=== PATIENT | male | born 1965 | race Caucasian/White ===

== ENCOUNTER → 2016-06-06 | Outpatient (CLI) | payer OTHER ==
[~2016-06-06] MED LIST: AMLO10TA88 PO; ATOR-24 PO; AZITTAB PO; CHOL100027 PO; CITA20TA4 PO; FEBU80TA PO; METH4PAK PO; UMEC1INH INH; [UNRECOGNIZED DRUG - CODE] PO
--- NOTE | 2016-06-07 06:37 | PAP/PSG TECHNICIAN REPORT ---
[facility] Utility Specialist Polysomnogram Report Study name: None Report date: 06/07/2016 Study date: 06/06/2016 Referring Physician: Ian VIERA M.D. Name: GUCCI CERDA Interpreting Physician: Jannette Viera M.D. Date of : 1965 Utility Specialist: Rai Pierce RPSGT. Sex: Male Age: 51 StudyType: PSG Weight: 244 lbs Height: 51 years, Height 5' 11" BMI: 34.03 Medications: CELEXA 20 MG, LIPITOR 40 MG, DESTINY 5-20 MG, OXYEGN 2L/MIN, ULORIC 80 MG, SULLNDAC 200 MG, CIALIS 20 MG, VITAMIN D 1000 UNITS, NAPROXEN 500 MG, MECLIZINE HCL 25 MG Patient History PATIENT HAS HISTORY OF DAYTIME FATIGUE AND SLEEPINESS. ALSO HISTORY OF OBESITY, SEVER SNORING, INSOMNIA AND NOCTURNAL HYPOXEMIA. HE HAD SLEEP STUDY DONE IN THE PAST AT [facility] BUT WAS NOT POSITIVE FOR MAL. ESS = 4 RM 5 Parameters Monitored NPSG: E1-M2, E2-M1, Fp1-M2, Fp2-M1, F3-M2, F4-M2, F4-M1, C3-M2, C4-M2, C4-M1, O1-M2, O2-M2, O2-M1, T3-M2, T4-M1, P3-M2, P4-M1, CHIN1, CHIN2, HR, EKG, Legs, PFLOW, SNOR, FLOW, CFLOW, Tidal Volume, THOR, ABDO, SpO2, PLTH, CPRESS, ETCO2 Wave, ETCO2, pH Sleep Architecture Sleep Stages Time at Lights Off 8:47:30 PM STAGES Time (min.) TST (%) Time at Lights On 5:25:30 AM Wake 93.5 -- Total Recording Time (TRT) 518.50 min. N1 73.5 17 Total Sleep Period (TSP) 497.5 min. N2 250.5 59 Total Sleep Time (TST) 424.5min. N3 46.5 11 Awake Time 93.5 min. REM 54.0 13 Wake after Sleep Onset 73.0 min. Sleep Efficiency (SE) 82 % Sleep Onset Latency (CORI) 20.5 min. Number of Stage 1 Shifts None Awakenings 37 Stage Changes 125 Number of REM periods 3 REM 54.0 13 REM Latency 309.0 min. NREM 370.5 87 Body Position Analysis Supine Right Left Side Prone Vertical Total Sleep Time (min.) 413.3 84.5 0.0 84.50 0.0 0.0 Total Sleep Time (%) 80% 20% 0% 20 0% N/A% Total Sleep Time REM (min.) 54.0 0.0 0.0 None 0.0 0.0 Total Sleep Time NREM (min.) 286.0 84.5 0.0 None 0.0 0.0 Intermittent Wake (min.) 73.3 20.2 0.0 None 0.0 0.0 Total Sleep Period (%) 79% None None None None None Arousals Myoclonus (PLM) * Events Count Index Events Count Index Spontaneous 45 6 Events Awake (PLMW) 12 7.7 Respiratory 4 0.7 Events Asleep w/ Arousal (PLMA) 9 1.3 PLM 9 1 Events Asleep w/o Arousal (PLMS) 125 17.7 Snoring 3 0 Total Asleep 134 18.9 Total 61 9 Total 146 17 Respiratory Analysis * CA OA MA CH H RERA Total Count 0 0 0 0 57 2 57 Index 0.0 0.0 0.0 0 8.1 0 8.3 Mean Duration 0.0 0.0 0.0 0.00 18.3 14.8 18.2 Longest Duration 0.0 0.0 0.0 0.00 0.0 15.1 44.7 Respiratory Event Summary Total Supine ~Supine Right Left Prone REM NREM Apneas Count 0 0 0 0 N/A N/A 0 0 Index 0.0 0 0 0.0 N/A N/A 0 0 Hypopneas (4% Desat) Count 57 56 1 1 N/A N/A 8 49 Index 8.1 9.9 1 0.7 N/A N/A 8.9 7.9 Apneas & All Hypopneas Count 57 56 1 1 N/A N/A 8 49 Index 8.1 10 1 1 N/A N/A 8.9 7.9 Respiratory Events (After School Counselor+All Hyp+RERA) Count 57 58 1 1 N/A N/A 8 49 Index 8.3 10 1 0.7 N/A N/A 8.9 8.3 Respiratory Related Arousal Count 4 58 0 0 N/A N/A 0 5 Index 0.7 1 0 0 N/A N/A 0 1 Snoring Analysis Supine Right Left Prone REM NREM Total Snore duration 35.3 min Snores count 1,400 80 N/A N/A 77 1,403 1,480 Snore mean duration 1.4 Sec Snores index 247 57 N/A N/A 85.6 227.2 209.2 TST with snoring (%) 8.3% SpO2 Analysis Total REM NREM Awake <50% 0.0 min. 0.0 min. 0.0 min. 0.0 min. 51 - 60% 0.0 min. 0.0 min. 0.0 min. 0.0 min. 61 - 70% 0.0 min. 0.0 min. 0.0 min. 0.0 min. 71 - 80% 0.0 min. 0.0 min. 0.0 min. 0.0 min. 81 - 90% 122.3 min. 21.1 min. 89.0 min. 12.1 min. 91 - 100% 394.7 min. 32.9 min. 280.6 min. 81.2 min. Average 92 91 91 92 Minimum SpO2 80 87 87 80 Desaturation Event Index 7.1 10.0 8.3 0.6 # Desat. Events below 89% 10 5 5 N/A Time(%) with Saturation below 89% 1.3 0.6 0.6 0.1 Time(min.) with Saturation below 89% 6.5 3.0 3.0 0.6 Heart Rate Analysis End Tidal CO2 Analysis Min (bpm) Max (bpm) Average (bpm) TSP (mins) % of TSP Awake 58 104 67 Above 55 mmHg 0.0 0.0 NREM 58 84 66 50-55 mmHg 0.0 0.0 REM 59 79 70 45-50 mmHg 34.9 8.2 Overall 58 84 67 40-45 mmHg 218.2 51.4 35-40 mmHg 82.8 19.5 30-35 mmHg 53.8 12.7 Average ETCO2 0.2 Supplemental O2 Values Minimum O2 level: None Value Start Time End Time Utility Specialist Comments Mr. Cerda slept in the right and supine positions. No cardiac arrhythmia noted. Leg movements noted. No bruxism noted. Snoring was noted and scored as a 3 on a scale of 1 through 5. (0=no snoring, 5=snoring loud enough to be heard through a closed door or down the [address]) Mr. Cerda awoke to use the restroom 0 times during the night. Mr. Cerda state I slept as well as I do when I am in my own bed. The final report will be interpreted and signed by a sleep physician. The completed physician report will then be placed in the patient medical record. Therapy (cm H2O) 0 TIB (min.) 518.0 TST (min.) 424.5 Sleep Onset (min.) 20.5 REM Onset From Sleep (min.) 309.0 Sleep Efficiency % 82 Wakefulness (%) 18 Wakefulness (min.) 93.5 NREM 1 (%) 17 NREM 1 (min.) 73.5 NREM 2 (%) 59 NREM 2 (min.) 250.5 NREM 3 (%) 11 NREM 3 (min.) 46.5 REM (%) 13 REM (min.) 54.0 # Arousals 61 Arousal Index 9 # Snore 1,480 Snore Index 209.2 AHI 8.1 AHI Supine 10 AHI Non-Supine 1 NREM AHI 7.9 REM AHI 8.9 RDI 8.3 # Obstructive Apnea 0 # Central Apnea 0 # Mixed Apnea 0 # Hypopneas 57 RERAs 2 Total Respiratory Events 59 Time Below SpO2 89% (min.) 6.0 Mean NREM SpO2 (%) 91 Mean REM SpO2 (%) 91 Mean Sleep SpO2 (%) 91 Min NREM SpO2 (%) 87 Min REM SpO2 (%) 87 Position Supine (min.) 413.3 Position Non-supine (min.) 84.5 LM Index Sleep 18.9 LM Index NREM 18.1 LM Index REM 24.4 Mean Heart Rate (bpm) 67 Min Heart Rate (bpm) 58
--- NOTE | 2016-06-17 02:51 | POLYSOMNOGRAPH REPORT ---
REFERRING PERSON: Dr. Ayaan Viera. YARDER OPERATOR: Rai Pierce. Mr. Stratton is a 51-year-old male who complains of excessive daytime sleepiness and fatigue. He has a history of obesity, severe snoring, insomnia and nocturnal hypoxemia. His [place] Sleepiness Scale score on the evening of this study is 4, BMI is 34.03. Following the technical and digital specifications of the [employer] [place] [employer] (AASM), a standard diagnostic polysomnogram was performed, monitoring EEG, EOG, EMG (chin and leg deviations), oxygen saturation, body position, digital video, respiratory effort and airflow. The sleep Stage and Event scoring was based on the AASM Manual for the Scoring of Sleep and Associated Events, 2007 edition. Apneas are defined as a drop in the peak thermal sensor excursion by >90% of baseline for at least 10 seconds. Hypopneas were scored using the 4% oxygen desaturation rule (4A-Medicare) and a decrease in the nasal pressure excursions by >30% of baseline for at least 10 seconds. Respiratory effort-related arousal (RERA) is defined as a sequence of breaths lasting at least 10 seconds characterized by increasing respiratory effort or flattening of the nasal pressure waveform leading to an arousal from sleep when the sequence of breaths does not meet criteria for an apnea or hypopnea. Apnea Hypopnea index (AHI) is defined as the number of apneas and hypopneas occurring in an hour of sleep. Respiratory disturbance index (RDI) is defined as the number of apneas, hypopneas, and RERAs occurring in an hour of sleep. Mr. Stratton's total sleep period time was 497.5 minutes. Total sleep time was 424.5 minutes. Sleep efficiency was 82%. Latency to sleep onset was 20.5 minutes with wake after sleep onset of 73 minutes. Total non-REM sleep time was 370.5 minutes. He spent 17% of that time in N1 sleep, 59% in N2 sleep, and 11% in N3 sleep. REM latency was 309 minutes. Total REM sleep time was 54 minutes or 13% of total sleep time. There were 61 cortical arousals from sleep. Three of these arousals were due to snoring, 9 due to periodic limb movements of sleep, 4 were due to respiratory events, and 45 were spontaneous. There were 134 periodic limb movements noted on this test. Limb movement index was 18.9. Limb movement with arousal index was 1.3. There were no central obstructive or mixed apneas on this test. There were 57 hypopnea and 2 RERA. Apnea-hypopnea index was 8.1, RDI was 8.3. This is consistent with mild sleep apnea. There were 1480 snoring events recorded. Total sleep time with snoring was 8.3%. Mean saturation was 92% with desaturations to 80%. Saturations were less than 89% for 6.5 minutes of sleep time. This is significant nocturnal hypoxemia. There was no cardiac ectopy noted on this study. Heart rates ranged from a low of 58 beats per minute to a high of 84 beats per minute during sleep. End-tidal CO2 was recorded on this test. End-tidal CO2s were between 45 and 50 mmHg for 8.2% of total sleep period time, between 40 and 45 mmHg for 51.4%, between 35 and 40 mmHg for 19.5%, and between 30 and 35 mmHg for 12.7% of total sleep period time. IMPRESSION AND PLAN: A 51-year-old male with evidence of mild sleep apnea and mild nocturnal hypoxemia on this sleep study. 1. This patient would likely benefit from positive airway pressure therapy. It would eliminate his snoring, hypoxemia, as well as his apnea. He could be returned to the sleep lab for a full night titration, and then based on those results, be started on equipment at home. A download from his machine should be then reviewed in 1 month, both to check compliance as well as AHI, and further pressure adjustments can occur at that time. 2. Alternatively, this patient could be started on an auto-titrating CPAP with pressures of 5-15 cm. After a month, optimal pressure can be determined and a download reviewed to ensure compliance. A nocturnal oximetry can then be performed on optimal pressure to ensure hypoxemia resolves with CPAP alone. 3. Should this patient be unwilling or unable to tolerate CPAP therapy, he could be referred to ear, nose and throat or oral surgery/dental medicine (if appropriate) to discuss alternative treatments for sleep disordered breathing.
== END | disposition home or self-care (01) ==
LOC: C.NEUR 20:00
PROVIDERS: ATTEND Family Medicine
DX: R06.02 Shortness of breath (principal); G47.34 Idiopathic sleep related nonobstructive alveolar hypoventilation

== ENCOUNTER 2016-10-28 13:42 | Emergency (ER) | payer OTHER ==
[~2016-10-28] VITALS: Ht 180.3 cm; Wt 112.8 kg
[~2016-10-28 13:42] MED LIST changes: -ATOR-24 PO; -AZITTAB PO; -CHOL100027 PO; -CITA20TA4 PO; -FEBU80TA PO; -METH4PAK PO; -UMEC1INH INH; -[UNRECOGNIZED DRUG - CODE] PO
[2016-10-28 13:52] VITALS: Ht 180.3 cm; Wt 112.8 kg
[2016-10-28] MEDS ORDERED: SODIUM CHLORIDE 0.9% 1000ML 1,000 ML IV ONE (14:15)
[2016-10-28 14:29] LABS: URINE APPEARANCE CLEAR (CLEAR); URINE BILIRUBIN NEG (NEG); URINE COLOR YELLOW; URINE NITRITE NEG (NEG); URINE PH 5.5 (4.5-7.5); URINE SPECIFIC GRAVITY 1.021 (1.000-1.030); UROBILINOGEN NEG (NEG); ZZUR CULT IF INDIC CLEAN CATCH NO
[2016-10-28 14:38] LABS: MANUAL MICROSCOPIC REQUIRED? NO; REVIEW REQ? NO
[2016-10-28 14:47] LABS: BASO % 0.2 %; BASO ABS # 0.01 K/uL (0-0.2); COMPLETE YES; EOS % 4.2 %; HEMATOCRIT 39.1 % (42-52); IG% 0.5 %; LYMPH % 25.1 %; LYMPH ABS # 1.44 K/uL (1.2-3.4); MEAN CELL VOLUME 87.9 fL (80-100); MEAN CORPUSCULAR HEMOGLOBIN 31.7 pg (25-34); MEAN CORPUSCULAR HGB CONC 36.1 g/dl (32-36); MEAN PLATELET VOLUME 10.7 fL (7.4-10.4); MONO % 10.3 %; NEUT % 59.7 %; PLATELET COUNT 188 K/uL (130-400); RED BLOOD COUNT 4.45 M/uL (4.7-6.1); WHITE BLOOD COUNT 5.73 K/uL (4.8-10.8)
--- NOTE | 2016-10-28 14:50 | DIAGNOSTIC IMAGING REPORT ---
CHEST 2 VIEWS ROUTINE CLINICAL HISTORY: Cough. SOB COMPARISON STUDY: Chest radiograph May 04, 2016. FINDINGS: Thoracic spine hardware is noted. There is no pneumothorax or pleural effusion. Linear left basilar opacity suggests atelectasis or scarring. There is evidence for a previous right thoracotomy. The appearance of the chest is unchanged. There is no evidence of pulmonary edema. IMPRESSION: No acute cardiopulmonary findings. No change in appearance of the chest. Electronically signed by: David Wolfe M.D. 10/28/2016 2:49 PM Dictated Date/Time: 10/28/2016 2:47 PM
[2016-10-28 14:55] LABS: POINT OF CARE TROPONIN I < 0.030 ng/ml (0-0.045)
[2016-10-28 15:06] LABS: BUN/CREATININE RATIO 11.4 (10-20); CALCIUM 8.8 mg/dl (8.5-10.1); CREATININE 1.3 mg/dl (0.60-1.40); MAGNESIUM 2.1 mg/dl (1.8-2.4); POTASSIUM 3.6 mmol/L (3.5-5.1)
[2016-10-28 15:11] LABS: CKMB/CK RATIO 1.1 (0-3.0)
--- NOTE | 2016-10-28 15:34 | DIAGNOSTIC IMAGING REPORT ---
CHEST CTA for PULMONARY ARTERIES CT DOSE: 685.80 mGy.cm HISTORY: Chest pain dyspnea TECHNIQUE: Multiaxial CT images of the chest were performed following the intravenous administration of contrast to evaluate the pulmonary arteries. Maximal intensity projection images were also obtained. COMPARISON STUDY: 03/14/2013 FINDINGS: Pulmonary vasculature enhances appropriately. Lungs are considered clear. Chronic pleural scarring right base laterally. Stable postoperative changes involving the thoracolumbar spine. IMPRESSION: 1. Study is negative for pulmonary most. 2. Lungs are considered clear. Electronically signed by: Pranav Vallejo M.D. 10/28/2016 3:33 PM Dictated Date/Time: 10/28/2016 3:31 PM
[2016-10-28] MEDS ORDERED: [UNRECOGNIZED DRUG - CODE] PO (15:53)
[2016-10-28] MEDS ORDERED: ATOR-24 PO (15:53)
[2016-10-28] MEDS ORDERED: UMEC1INH INH (15:53)
[2016-10-28] MEDS ORDERED: AZITTAB PO (15:55)
[2016-10-28] MEDS ORDERED: METH4PAK PO (15:55)
[2016-10-28 16:10] VITALS: BP 144/100; PULSE 70; TEMP 36.7; O2SAT 98
[2016-10-28] MEDS ORDERED: FEBU80TA PO (17:33)
[2016-10-28] MEDS ORDERED: CHOL100027 PO (17:33)
[2016-10-28] MEDS ORDERED: CITA20TA4 PO (17:33)
--- NOTE | 2016-10-28 19:26 | EMERGENCY ROOM VISIT NOTE ---
History First contact with patient: 13:52 Chief Complaint: SHORTNESS OF BREATH Stated Complaint: HEAVY CHEST - POSSIBLE PNEUMONIA Nursing Triage Summary: Patient c/o productive cough since Friday with some pain in his chest when coughing. History of Present Illness The patient is a 51 year old male who presents to the Emergency Room with complaints of worsening cough over the past one to 2 days. The patient does have some burning chest pain with the coughing. He does not have pain into his arms or neck. The patient believes he may have pneumonia, as he has had similar symptoms in the past. The patient has not had fever at home. No recent travel history or history of coagulopathy. The patient has not taken anything [id number] for his symptoms. He rates his discomfort a 5/10. Review of Systems More than 10 systems were reviewed and otherwise negative with the exception of history of present illness. Past Medical/Surgical History Medical Problems: (1) Hypertension (2) Pneumonia Surgical Problems: (1) History of back surgery Family History Cancer Heart disease Social History Smoking Status: Never Smoker Alcohol Use: none Drug Use: none Housing Status: lives with significant other Occupation Status: unemployed Current/Historical Medications Scheduled Amlodipine Besylate-Olmesartan (Amlodipine/Olmesartan Med 5-20 mg), 1 TAB PO DAILY Atorvastatin (Lipitor), 40 MG PO DAILY Azithromycin (Zithromax Z-Kvng), 0 PO UD Cholecalciferol (Vitamin D 1000 Unit), 2,000 INTER.UNIT PO DAILY Citalopram Hydrobromide (Citalopram Hydrobromide), 20 MG PO DAILY Febuxostat (Uloric), 80 MG PO DAILY Methylprednisolone (Medrol Dosepak), 1 DOSE PO DAILY Umeclidinium [place] (Incruse Ellipta), 1 PUFF INH DAILY Allergies Coded Allergies: No Known Allergies (Unverified , 05/04/16) Physical Exam Vital Signs Date Time Temp Pulse Resp B/P (MAP) Pulse Ox O2 Delivery O2 Flow Rate FiO2 10/28/16 16:10 36.7 70 20 144/100 98 10/28/16 14:19 68 172/88 72 149/86 80 146/89 10/28/16 14:19 98 Room Air 10/28/16 13:52 36.7 76 20 166/99 96 Room Air Pain Rating (0-10): 0 Physical Exam VITALS: Vitals are noted on the nurse's note and reviewed by myself. Vital signs stable. GENERAL: Well-developed, well-nourished, white male, who is in no acute distress and resting comfortably. Patient is cooperative with the examination. HEAD: Normocephalic atraumatic. EARS: External ear normal. External auditory canals clear, tympanic membranes pearly sanchez without erythema or effusion bilaterally. EYES: Pupils equal round and reactive to light and accommodation. Conjunctivae without injection, sclerae without icterus. Extraocular movements intact. NOSE: Patent, turbinates without inflammation or discharge. MOUTH: Mucous membranes moist. Tonsils are not enlarged. Pharynx without erythema, blood, or exudate. Uvula midline. Airway patent. NECK: Supple without nuchal rigidity. No lymphadenopathy. No thyromegaly. Cervical spine is nontender. HEART: Regular rate and rhythm without murmurs gallops or rubs. LUNGS: Clear to auscultation bilaterally without wheezes, rales or rhonchi. No retractions or accessory muscle use. ABDOMEN: Positive normal bowel sounds x 4. Soft, nontender, without masses or organomegaly. No guarding or rebound tenderness. MUSCULOSKELETAL: No muscle atrophy, erythema, or edema noted. Negative Homans sign bilateral Medical Decision & Procedures ER Provider Diagnostic Interpretation: CHEST 2 VIEWS ROUTINE CLINICAL HISTORY: Cough. SOB COMPARISON STUDY: Chest radiograph May 04, 2016. FINDINGS: Thoracic spine hardware is noted. There is no pneumothorax or pleural effusion. Linear left basilar opacity suggests atelectasis or scarring. There is evidence for a previous right thoracotomy. The appearance of the chest is unchanged. There is no evidence of pulmonary edema. IMPRESSION: No acute cardiopulmonary findings. No change in appearance of the chest. CHEST CTA for PULMONARY ARTERIES CT DOSE: 685.80 mGy.cm HISTORY: Chest pain dyspnea TECHNIQUE: Multiaxial CT images of the chest were performed following the intravenous administration of contrast to evaluate the pulmonary arteries. Maximal intensity projection images were also obtained. COMPARISON STUDY: 03/14/2013 FINDINGS: Pulmonary vasculature enhances appropriately. Lungs are considered clear. Chronic pleural scarring right base laterally. Stable postoperative changes involving the thoracolumbar spine. IMPRESSION: 1. Study is negative for pulmonary most. 2. Lungs are considered clear. Laboratory Results 10/28/16 14:25 Red Blood Count 4.45, Mean Corpuscular Volume 87.9, Mean Corpuscular Hemoglobin 31.7, Mean Corpuscular Hemoglobin Concent 36.1, Mean Platelet Volume 10.7, Neutrophils (%) (Auto) 59.7, Lymphocytes (%) (Auto) 25.1, Monocytes (%) (Auto) 10.3, Eosinophils (%) (Auto) 4.2, Basophils (%) (Auto) 0.2, Neutrophils # (Auto ) 3.42, Lymphocytes # (Auto) 1.44, Monocytes # (Auto) 0.59, Eosinophils # (Auto ) 0.24, Basophils # (Auto) 0.01 10/28/16 14:25 Test 10/28/16 14:15 10/28/16 14:25 10/28/16 14:35 Urine Color YELLOW Urine Appearance CLEAR (CLEAR) Urine pH 5.5 (4.5-7.5) Urine Specific [place] 1.021 (1.000-1.030) Urine Protein NEG (NEG) Urine Glucose (UA) NEG (NEG) Urine Ketones NEG (NEG) Urine Occult Blood NEG (NEG) Urine Nitrite NEG (NEG) Urine Bilirubin NEG (NEG) Urine Urobilinogen NEG (NEG) Urine Leukocyte Esterase NEG (NEG) White Blood Count 5.73 K/uL (4.8-10.8) Red Blood Count 4.45 M/uL (4.7-6.1) Hemoglobin 14.1 g/dL (14.0-18.0) Hematocrit 39.1 % (42-52) Mean Corpuscular Volume 87.9 fL (80-100) Mean Corpuscular Hemoglobin 31.7 pg (25-34) Mean Corpuscular Hemoglobin Concent 36.1 g/dl (32-36) Platelet Count 188 K/uL (130-400) Mean Platelet Volume 10.7 fL (7.4-10.4) Neutrophils (%) (Auto) 59.7 % Lymphocytes (%) (Auto) 25.1 % Monocytes (%) (Auto) 10.3 % Eosinophils (%) (Auto) 4.2 % Basophils (%) (Auto) 0.2 % Neutrophils # (Auto) 3.42 K/uL (1.4-6.5) Lymphocytes # (Auto) 1.44 K/uL (1.2-3.4) Monocytes # (Auto) 0.59 K/uL (0.11-0.59) Eosinophils # (Auto) 0.24 K/uL (0-0.5) Basophils # (Auto) 0.01 K/uL (0-0.2) RDW Standard Deviation 41.0 fL (36.4-46.3) RDW Coefficient of Variation 12.8 % (11.5-14.5) Immature Granulocyte % (Auto) 0.5 % Immature Granulocyte # (Auto) 0.03 K/uL (0.00-0.02) Anion Gap 7.0 mmol/L (3-11) Est Creatinine Clear Calc Drug Dose 85.8 ml/min Estimated GFR () 73.2 Estimated GFR (Non- 63.2 BUN/Creatinine Ratio 11.4 (10-20) Calcium Level 8.8 mg/dl (8.5-10.1) Magnesium Level 2.1 mg/dl (1.8-2.4) Total Bilirubin 0.4 mg/dl (0.2-1) Aspartate Amino Transf (AST/SGOT) 31 U/L (15-37) Alanine Aminotransferase (ALT/SGPT) 53 U/L (12-78) Alkaline Phosphatase 95 U/L (45-117) Total Creatine Kinase 152 U/L (39-308) Creatine Kinase MB 1.7 ng/ml (0.5-3.6) Creatine Kinase MB Ratio 1.1 (0-3.0) Total Protein 7.8 gm/dl (6.4-8.2) Albumin 3.9 gm/dl (3.4-5.0) Globulin 3.9 gm/dl (2.5-4.0) Albumin/Globulin Ratio 1.0 (0.9-2) Lipase 116 U/L (73-393) Bedside D-Dimer > 450 ng/mlFEU (0-450) Bedside Troponin I < 0.030 ng/ml (0-0.045) Medications Administered Medications (Trade) Dose Ordered Sig/Stacie Route Start Time Stop Time Status Last Admin Dose Admin Sodium Chloride 1,000 ml @ 999 mls/hr Q1H1M ONCE IV 10/28/16 14:15 10/28/16 15:15 DC 10/28/16 14:15 999 MLS/HR ED Course Physical exam and history were performed. Nursing notes and EMR were reviewed. Patient appears to have a worsening cough over the past 2 days. The patient is also reporting burning of his chest. EKG was performed and was normal sinus rhythm without acute ST elevation. IV access was established and labs were obtained. The patient was hydrated as above. Chest x-ray was ordered. The patient's blood work does not show a distinctly elevated white blood cell count, gross anemia, bandemia, or significant electrolyte imbalance. His troponin 1 is negative. D-dimer was elevated, and a CT scan was negative. Chest x-ray was also negative. Overall the patient appears well for discharge home. His symptoms may be the result of a reactive airway process such as bronchitis or possibly allergies. I do not suspect cardiac etiology. The patient will be given a course of Zithromax and steroids. I recommended that he follow with his primary care physician in the next few days for recheck. He was otherwise invited back to the ER with any new, worsening, or concerning symptoms. The patient was pleased with plan of care and rated his discomfort a 0/10 at the time of departure. The chart was completed utilizing [employer] Speech Voice Recognition Software. Grammatical errors, random word insertions, pronoun errors, and incomplete sentences are an occasional consequence of this system due to software limitations, ambient noise, and hardware issues. Any formal questions or concerns about the content, text, or information contained within the body of this dictation should be directly addressed to the provider for clarification. . Medical Decision Differential diagnosis: Etiologies such as infections, reactive airway disease, pneumonia, pneumothorax , COPD, CHF, cardiac ischemia, pulmonary embolism, musculoskeletal, gastrointestinal, as well as others were entertained. Impression Primary Impression: Acute bronchitis Departure Information Dispostion Home / Self-Care Condition GOOD Prescriptions Methylprednisolone (MEDROL DOSEPAK) 4 Mg Kvng 1 DOSE PO DAILY, #1 PKT Prov: Pepito Guerra PA-C 10/28/16 Azithromycin (ZITHROMAX Z-KVNG) 250 Mg Tab 0 PO UD, #1 PKT 2 TABS DAY 1, THEN 1 TAB DAILY FOR 4 DAYS Prov: Pepito Guerra PA-C 10/28/16 Referrals Kayden Carrera M.D. (PCP) Forms HOME CARE DOCUMENTATION FORM, IMPORTANT VISIT INFORMATION Patient Instructions My [facility] Additional Instructions You were seen and evaluated today on an emergency basis only. This is not a substitute for, or an effort to provide, complete comprehensive medical care. It is not possible to recognize and treat all injuries or illnesses in a single emergency department visit. For this reason it is recommended that you followup with your primary care physician this week for ongoing care and evaluation. Take Zithromax as prescribed. Take Medrol Dosepak as prescribed. You are welcome to return to the emergency department anytime with new, worsening, or concerning symptoms.
== END 2016-10-28 16:11 | disposition home or self-care (01) ==
LOC: C.EDB 13:43 → C.EDA 16:11
DX: J20.9 Acute bronchitis, unspecified (principal); I10 Essential (primary) hypertension; Z87.01 Personal history of pneumonia (recurrent); Z98.890 Other specified postprocedural states; Z79.899 Other long term (current) drug therapy